=== PATIENT | male | born 1995 | race African-American/Black ===

== ENCOUNTER 2017-06-23 08:26 | Emergency (ER) | payer MEDICAID ==
[~2017-06-23] VITALS: Ht 172.7 cm; Wt 87.0 kg
[2017-06-23] MEDS ORDERED: IBUPROFEN 600MG TABLET PO ONE (12:15)
[2017-06-23 12:20] VITALS: BP 121/50
== END 2017-06-23 12:22 | disposition home or self-care (01) ==
LOC: ER 08:36
DX: S93.601A Unspecified sprain of right foot, initial encounter (principal); F12.10 Cannabis abuse, uncomplicated; X50.0XXA Overexertion from strenuous movement or load, initial encounter; Y93.67 Activity, basketball; Y92.89 Other specified places as the place of occurrence of the external cause; Y99.8 Other external cause status
CPT/HCPCS: 73610; 73630; 99284